=== PATIENT | male | born 1960 | race African-American/Black ===

== ENCOUNTER 2016-07-29 05:42 | Emergency (ER) | payer SELFPAY ==
[2016-07-29] MEDS ORDERED: ASPIRIN 81 MG CHEW TAB ONE (06:16)
== END 2016-07-29 09:40 | disposition other institution (70) ==
LOC: ER 05:42
DX: R07.89 Other chest pain (principal); I10 Essential (primary) hypertension; F17.210 Nicotine dependence, cigarettes, uncomplicated
CPT/HCPCS: 36415; 71010; 80053; 82550; 82553; 83735; 83880; 84484; 85025; 85610; 85730; 93005